=== PATIENT | female | born 1950 | race Caucasian/White ===

== ENCOUNTER 2016-11-06 06:48 | Day surgery (SDC) | payer MEDICARE, BC, OTHER ==
[~2016-11-06] VITALS: Ht 165.1 cm; Wt 54.5 kg
[2016-11-06] VITALS (9 sets, daily range): BP systolic 127–156; BP diastolic 61–743; PULSE 63–79; TEMP 97.4–97.6
[2016-11-06] MEDS ORDERED: NORVASC 5MG5 MG/TAB PO (11:50)
[2016-11-06] MEDS ORDERED: VASOTEC20 MG PO (11:51)
[2016-11-06] MEDS ORDERED: MAGNESIUM250 M1 PO (11:58)
[2016-11-06] MEDS ORDERED: CALCIUM 600MG+D1 TAB PO (11:58)
[2016-11-07 01:21] VITALS: BP 128/66; PULSE 72; TEMP 98
[2016-11-07 06:32] VITALS: BP 151/69; PULSE 65; TEMP 97.7
== END 2016-11-07 10:20 | disposition home or self-care (01) ==
LOC: SDCO 06:48 → SURG 16:22 → SDCO 11-07 10:20
DX: C50.412 Malignant neoplasm of upper-outer quadrant of left female breast (principal); Z17.1 Estrogen receptor negative status [ER-]; C50.511 Malignant neoplasm of lower-outer quadrant of right female breast; Z17.0 Estrogen receptor positive status [ER+]; I10 Essential (primary) hypertension; F17.210 Nicotine dependence, cigarettes, uncomplicated
CPT/HCPCS: OP; A9284; A9541; J1885; J2250; J2405; J2704; J2795; J3010; J7120

== ENCOUNTER 2019-10-09 08:08 | Outpatient (CLI) | payer MEDICARE, BC, OTHER ==
[2019-10-09] VITALS (9 sets, daily range): BP systolic 136–178; BP diastolic 79–88; PULSE 80–97
[~2019-10-09] VITALS: Ht 165.1 cm; Wt 51.3 kg
[~2019-10-09 08:08] MED LIST: CALCIUM 600MG+D1 TAB PO; MAGNESIUM250 M1 PO; NORVASC 5MG5 MG/TAB PO; VASOTEC20 MG PO
[2019-10-09 10:00] LABS: GLUCOSE,CSF 54 mg/dL (40-70)
--- NOTE | 2019-10-09 10:03 | NUR ---
Bedside report taken from YONATHAN Knutson in radiology. Pt's labs were drawn during prodedure. Will continue to monitor pt.
[2019-10-09 10:20] LABS: TOTAL PROTEIN,CSF 48 mg/dL (15-45)
[2019-10-09 11:30] LABS: CSF APPEARANCE CLEAR; CSF COLOR COLORLESS; CSF MONONUCLEAR 100 % (70-100); CSF POLYMORPHONUCLEAR 0 % (0-6); CSF RBC 132 /mm3 (0-0)
--- NOTE | 2019-10-09 11:35 | NUR ---
Pt was discharged via w/c to the care of , Dain. Pt ambulated with cane prior to discharge with no complications. Pt denies pain at the site and tolerated intake with no N/V. Discharge instructions were in hand when pt left hospital.
--- NOTE | 2019-10-09 11:49 | NUR ---
Discharge instructions reviewed with pt. Pt voiced understanding. Pt voided with no complications.
== END 2019-10-09 11:35 | disposition home or self-care (01) ==
LOC: COL.RAD 08:08
PROVIDERS: Internal Medicine
DX: C50.411 Malignant neoplasm of upper-outer quadrant of right female breast (principal); R94.02 Abnormal brain scan

== ENCOUNTER → 2019-10-13 | Outpatient (CLI) | payer MEDICARE, BC, OTHER ==
[~2019-10-13] VITALS: Ht 165.1 cm; Wt 48.8 kg
[2019-10-13 08:45] VITALS: BP 160/82; PULSE 90
[2019-10-13 10:38] VITALS: BP 115/65; PULSE 80
--- NOTE | 2019-10-13 10:50 | NUR ---
Called Dr Morillo and he reports chest xray is good. No pneumo on left side. Pt given coffee to drink and pt up to get dressed.
--- NOTE | 2019-10-13 11:07 | NUR ---
awaiting pts ride home
[2019-10-13 11:14] LABS: GLUCOSE,PLEURAL FLUID 92 mg/dL
[2019-10-13 11:18] LABS: TOTAL PROTEIN,PLEURAL FLUID 4.3 gm/dL
--- NOTE | 2019-10-13 11:30 | NUR ---
Pt out to car per wheelchair. Pt up and into car without difficulty. Denies pain at this time.
[2019-10-13 11:34] LABS: PLEURAL FLUID RBC 0 /mm3 (0-0); PLEURAL FLUID WBC 1077 /mm3
[2019-10-13 11:44] LABS: PLEURAL FLUID COLOR YELLOW
[2019-10-13 11:45] LABS: PLEURAL FLUID APPEARANCE CLEAR
== END ==
LOC: COL.RAD 08:31
PROVIDERS: Internal Medicine
DX: J90 Pleural effusion, not elsewhere classified (principal); C50.411 Malignant neoplasm of upper-outer quadrant of right female breast

== ENCOUNTER → 2019-11-20 | Outpatient (CLI) | payer MEDICARE, BC, OTHER ==
[~2019-11-20] VITALS: Ht 165.1 cm; Wt 47.4 kg
[~2019-11-20] MED LIST changes: +ASPERCREME85G TP; +ULTRAM 50MG TAB50 MG PO
[2019-11-20 13:45] VITALS: BP 114/76; PULSE 101
[2019-11-20 14:34] VITALS: BP 123/76; PULSE 89
--- NOTE | 2019-11-20 14:36 | NUR ---
DR FOSTER REMOVED 2000 CC YELLOW FLUID.
== END ==
LOC: COL.RAD 13:30
DX: J90 Pleural effusion, not elsewhere classified (principal); C77.1 Secondary and unspecified malignant neoplasm of intrathoracic lymph nodes; C79.51 Secondary malignant neoplasm of bone; C79.81 Secondary malignant neoplasm of breast; Z85.3 Personal history of malignant neoplasm of breast